=== PATIENT | female | born 1985 | race Caucasian/White ===

== ENCOUNTER 2020-02-09 17:23 | Observation (INO) ==
[2020-02-09] MEDS ORDERED: 0.9 % Sodium Chloride 1,000 ML IVC ONE (18:18)
[2020-02-09] MEDS ORDERED: Clindamycin 600 MG/50 ML 600 MG/50 ML IV.SOLN IVPB ONE (18:27)
[2020-02-09 18:39] LABS: Basophils # 0.1 K/mcL (0.0-0.2); Basophils % 0.5 %; Eosinophils # 0.3 K/mcL (0.0-0.6); Eosinophils % 1.8 %; Hematocrit 39.2 % (35.3-44.9); Hemoglobin 12.6 g/dL (11.5-15.4); Immature Granulocytes % 0.3 % (0-4); Lymphocytes # 2.3 K/mcL (0.6-4.6); Mean Corpuscular HGB Conc 32.1 g/dL (31.6-35.5); Mean Corpuscular Volume 96.6 fL (83.0-100.0); Monocytes # 1.9 K/mcL (0.0-1.3); Monocytes % 12.7 %; Neutrophils # 10.4 K/mcL (1.6-8.9); Platelet Count 200 K/mcL (140-400); Red Blood Count 4.06 M/mcL (3.82-4.97); Red Cell Distribution Width 12.8 % (11.5-14.5); Segmented Neutrophils % 69.7 %
[2020-02-09 18:58] LABS: BUN/Creatinine Ratio 15 (6-26); Blood Urea Nitrogen 11 mg/dL (6-20); Calcium 9.6 mg/dL (8.6-10.3); Carbon Dioxide 30 mEq/L (23-29); Chloride 106 mEq/L (98-107); Glucose 75 mg/dL (70-105); Osmolality,Calculated 292 (280-300); Sodium 142 mEq/L (136-145); eGFR For African Americans > 60 (> 60); eGFR For Non-African Americans > 60 (> 60)
[2020-02-09] MEDS ORDERED: Isovue-370 500 ML BOTTLE IVP ONE (19:18)
[2020-02-09] MEDS ORDERED: Ibuprofen 600 MG TABLET PO ONE (20:02)
[2020-02-09] MEDS ORDERED: Naloxone 0.4 MG/ML INJ IVP PRN (21:58)
[2020-02-09] MEDS: 0.9 % Sodium Chloride 1,000 ML IVC SCH (22:46)
[2020-02-09] MEDS: Ketorolac 15 MG/ML VIAL IVP PRN (22:48)
[2020-02-09] MEDS: Clindamycin 600 MG/50 ML 600 MG/50 ML IV.SOLN IVPB SCH (22:48)
[2020-02-09] MEDS ORDERED: *HR* OxyCODONE/APAP 5/325 TABLET PO PRN (22:48)
[2020-02-10] MEDS: Ondansetron 4 MG/2 ML VIAL IVP PRN ×2 (00:56→11:20)
[2020-02-10 05:36] LABS: Basophils # 0.1 K/mcL (0.0-0.2); Basophils % 0.6 %; Eosinophils # 0.3 K/mcL (0.0-0.6); Eosinophils % 2.6 %; Hematocrit 35.1 % (35.3-44.9); Hemoglobin 11.3 g/dL (11.5-15.4); Immature Granulocytes % 0.2 % (0-4); Lymphocytes % 23.5 %; Mean Corpuscular HGB Conc 32.2 g/dL (31.6-35.5); Mean Corpuscular Volume 99.4 fL (83.0-100.0); Mean Platelet Volume 11.8 fL (9.4-12.4); Monocytes # 1.7 K/mcL (0.0-1.3); Monocytes % 13.4 %; Neutrophils # 7.6 K/mcL (1.6-8.9); Platelet Count 170 K/mcL (140-400); Red Blood Count 3.53 M/mcL (3.82-4.97); Red Cell Distribution Width 12.9 % (11.5-14.5); Segmented Neutrophils % 59.7 %; White Blood Count 12.8 K/mcL (4.3-11.1)
[2020-02-10 06:00] LABS: BUN/Creatinine Ratio 21 (6-26); Blood Urea Nitrogen 14 mg/dL (6-20); Calcium 8.7 mg/dL (8.6-10.3); Chloride 110 mEq/L (98-107); Glucose 84 mg/dL (70-105); Osmolality,Calculated 296 (280-300); Potassium 4.2 mEq/L (3.5-5.1); Sodium 143 mEq/L (136-145); eGFR For African Americans > 60 (> 60); eGFR For Non-African Americans > 60 (> 60)
[2020-02-10] MEDS ORDERED: *HR* Heparin 5,000 UNIT/ML VIAL SQ SCH (06:00)
[2020-02-10] MEDS: Ketorolac 15 MG/ML VIAL IVP PRN (06:16)
[2020-02-10 06:28] LABS: Carbon Dioxide 28 mEq/L (23-29)
[2020-02-10] MEDS: Clindamycin 600 MG/50 ML 600 MG/50 ML IV.SOLN IVPB SCH (08:42)
[2020-02-10 11:42] VITALS: BP 119/76
[2020-02-10] MEDS: 0.9 % Sodium Chloride 1,000 ML IVC SCH (12:16)
== END 2020-02-10 14:36 | disposition left against medical advice (07) ==
LOC: EMEROOARM 17:23 → 3BNU 17:23
PROVIDERS: ADMIT Family Medicine; ATTEND Family Medicine